=== PATIENT | male | born 1970 | race Caucasian/White ===

== ENCOUNTER 2016-08-07 18:14 | Emergency (ER) | payer OTHER ==
[2016-08-07 18:23] VITALS: BP 149/88; PULSE 60; TEMP 97.6; BMI 28.8
[2016-08-07 18:30] LABS: URINE APPEARANCE Slightly; URINE BILIRUBIN 1+ (NEGATIVE); URINE GLUCOSE (UA) Negative (NEGATIVE); URINE KETONE Negative (NEGATIVE); URINE LEUK ESTERASE Negative (NEGATIVE); URINE NITRITE Negative (NEGATIVE); URINE UROBILINOGEN 0.2 E.U/dl (0.2-1.0)
[2016-08-07 18:31] LABS: URINE BLOOD 3+ (NEGATIVE); URINE COLOR AMBER; URINE PROTEIN 2+ (NEGATIVE)
[2016-08-07 18:35] LABS: URINE BACTERIA FEW /hpf (NEGATIVE); URINE RBC 60-100 /hpf (0-3)
[2016-08-07 18:49] LABS: BASOPHIL 0.9 % (0-2.0); EOSINOPHIL 5.5 % (0-4.5); MCH 31.3 pg (25.7-33.7); MCHC 34.5 g/dl (32.0-35.9); MEAN CELL VOLUME 90.7 fl (80-96); MEAN PLT VOLUME 8.1 fl (7.5-11.1); NEUTROPHILS 68.3 % (42.8-82.8); PLATELET COUNT 258 K/MM3 (134-434); RDW 12.2 % (11.9-15.9); WHITE BLOOD COUNT 9.3 K/mm3 (4.0-10.8)
[2016-08-07 19:01] LABS: ALBUMIN 4.7 g/dl (3.5-5.0); ALK PHOS 60 U/L (32-92); ANION GAP 7 (8-16); BILIRUBIN,TOTAL 0.6 mg/dl (0.2-1.0); CALCIUM 9.2 mg/dl (8.4-10.2); CO2 28 mmol/L (22-28); COCKROFT - GAULT 119.97; GLUCOSE,RANDOM 136 mg/dl (74-106); SGOT/AST 30 U/L (10-42); SGPT/ALT 26 U/L (10-40); TOT PROT 7.1 g/dl (6.4-8.3)
[2016-08-07] MEDS ORDERED: KETOROLAC TROMETHAMINE 30 MG/1 ML VIAL IVPUSH ONE (19:05)
[2016-08-07] MEDS ORDERED: KETOROLAC TROMETHAMINE 30 MG/1 ML VIAL ONE (19:06)
--- NOTE | 2016-08-07 19:23 | PDOC ---
History of Present Illness - History of Present Illness Initial Comments: 08/07/16 19:31 The patient is a 46 year old male with a past medical history of kidney stones, presents to the emergency department with a complaint of abdominal pain since earlier today. Patient states this pain feels similar to his previous kidney stone pains. The pain is in the left lower quadrant and radiates down into his groin. Denies nausea or vomiting. Denies fever or chills. Adult HPI PAST MEDICAL HISTORY: kidney stones PAST SURGICAL HISTORY: no significant history FAMILY HISTORY: no pertinant history SOCIAL HISTORY: Pt lives with family and is employed. MEDICATIONS: reviewed ALLERGIES: As per nursing notes ROS General: No fevers or chills, no weakness, no weight loss HEENT: No change in vision. No sore throat,. No ear pain CardioVascular: No chest pain or shortness of breath Respiratory:No cough, or wheezing. Gastrointestinal: Yes: Abdominal pain no nausea, vomitting, diarrhea or constipation, No rectal bleeding Genitourinary: No dysuria, hematuria, or frequency Musculoskeletal: No joint or muscle pain or swelling Neurologic: No headache, vertigo, dizziness or loss of consciousness Psychiatric: no depression Skin: No rashes or easy bruising Endocrine: no increased thirst or abnormal weight change Allergic: no skin or latex allergy All other systems reviewed and normal Exam General: Well-nourished well-developed individual, no acute distress HEENT: Throat: Normal, tonsils normal, no erythema or exudate Neck: Supple, no meningeal signs, no lymphadenopathy Eyes::Pupils equal reactive and round, extraocular motion intact Chest: Nontender to palpation Cardiac: S1-S2 normal, regular rate and rhythm, no murmurs rubs or gallops Respiratory: Lungs clear to auscultation bilateral Abdomen: Soft, nondistended, normal bowel sounds, tender to palpation in the left lower quadrent. No CVA tenderness or flank tenderness Extremities: Warm, dry, no cyanosis, clubbing, or edema Skin: No rashes Neuro: Alert and oriented x3, nonfocal exam, grossly intact, normal gait <Gamal Caldwell - Last Filed: 08/07/16 19:33> - General History Source: Patient Exam Limitations: No Limitations - History of Present Illness Initial Comments: 08/07/16 19:47 A portion of this note was documented by scribe services under my direction. I have reviewed the details of the note, within reason, and agree with the documentation. The case summary and management plan written by me. 08/07/16 23:09 CT scan shows a 5 mm stone at the distal left ureter there are additional small stones bilaterally kidneys bilaterally no obstructive uropathy otherwise unremarkable. Assessment and plan: This is a 46-year-old male comes in complaining of left- sided flank pain. Patient had light in his urine and had a CAT scan to rule out renal colic. Patient did have a 5 mm distal ureter stone. Patient is comfortable at this time so the stone may have passed however in the event that it did not I am sending prescriptions to his pharmacy for pain medication and nausea medication and Flomax. Patient has had kidney stones before and has a urologist he can follow-up with. <Florentino Houston I - Last Filed: 08/07/16 23:15> - General Chief Complaint: Pain, Acute Stated Complaint: LEFT LLQ PAIN Time Seen by Provider: 08/07/16 19:13 Past History <Gamal Caldwell - Last Filed: 08/07/16 19:33> - Past Medical History Other medical history: KID STONES - Psycho/Social/Smoking Cessation Hx Anxiety: No Suicidal Ideation: No Smoking History: Never smoked Hx Alcohol Use: Yes Drug/Substance Use Hx: No Substance Use Type: Alcohol <Florentino Houston I - Last Filed: 08/07/16 23:15> - Past Medical History Allergies/Adverse Reactions: Allergies Allergy/AdvReac Type Severity Reaction Status Date / Time No Known Allergies Allergy Verified 08/07/16 18:15 Home Medications: Ambulatory Orders Apremilast [Otezla] 1 each PO BID 08/07/16 Ondansetron [Zofran Odt -] 4 mg SL TID #12 od.tablet 08/07/16 Oxycodone HCl/Acetaminophen [Percocet 5-325 mg Tablet] 1 - 2 tab PO Q4H #20 tablet MDD 8 08/07/16 Tamsulosin HCl [Flomax] 0.4 mg PO DAILY #30 cap.er.24h 08/07/16 *Physical Exam - Vital Signs Last Vital Signs Temp Pulse Resp BP Pulse Ox 97.6 F 60 16 149/88 100 08/07/16 18:15 08/07/16 18:15 08/07/16 18:15 08/07/16 18:15 08/07/16 18:15 <Gamal Caldwell - Last Filed: 08/07/16 19:33> - Vital Signs Last Vital Signs Temp Pulse Resp BP Pulse Ox 97.6 F 60 16 149/88 100 08/07/16 18:15 08/07/16 18:15 08/07/16 18:15 08/07/16 18:15 08/07/16 18:15 <Florentino Houston I - Last Filed: 08/07/16 23:15> ED Treatment Course - LABORATORY CBC & Chemistry Diagram: 08/07/16 18:20 08/07/16 18:20 - ADDITIONAL ORDERS Additional order review: Laboratory Results 08/07/16 08/07/16 18:20 18:20 Sodium 136 Potassium 3.9 Chloride 101 Carbon Dioxide 28 Anion Gap 7 L BUN 16 Creatinine 1.0 Creat Clearance w eGFR > 60 Random Glucose 136 H Calcium 9.2 Total Bilirubin 0.6 AST 30 ALT 26 Alkaline Phosphatase 60 Total Protein 7.1 Albumin 4.7 Urine Color [place] Urine Appearance Slightly Urine pH 5.0 Ur Specific [place] 1.025 Urine Protein 2+ H Urine Glucose (UA) Negative Urine Ketones Negative Urine Blood 3+ H Urine Nitrite Negative Urine Bilirubin 1+ H Urine Urobilinogen 0.2 e.u/dl Ur Leukocyte Esterase Negative Urine RBC 60-100 Urine WBC 2-4 Ur Epithelial Cells Few Amorphous Urates Few Urine Bacteria Few 08/07/16 18:20 RBC 4.80 MCV 90.7 MCHC 34.5 RDW 12.2 MPV 8.1 Neutrophils % 68.3 Lymphocytes % 19.0 Monocytes % 6.3 Eosinophils % 5.5 H Basophils % 0.9 - Medications Given in the ED: ED Medications Discontinued Medications Generic Name Dose Route Start Last Admin Trade Name Freq PRN Reason Stop Dose Admin Ketorolac Tromethamine 30 mg 08/07/16 19:05 08/07/16 19:08 Toradol Injection - IVPUSH 08/07/16 19:06 30 mg ONCE ONE Administration <Gamal Caldwell - Last Filed: 08/07/16 19:33> - LABORATORY CBC & Chemistry Diagram: 08/07/16 18:20 08/07/16 18:20 - ADDITIONAL ORDERS Additional order review: Laboratory Results 08/07/16 08/07/16 18:20 18:20 Sodium 136 Potassium 3.9 Chloride 101 Carbon Dioxide 28 Anion Gap 7 L BUN 16 Creatinine 1.0 Creat Clearance w eGFR > 60 Random Glucose 136 H Calcium 9.2 Total Bilirubin 0.6 AST 30 ALT 26 Alkaline Phosphatase 60 Total Protein 7.1 Albumin 4.7 Urine Color [place] Urine Appearance Slightly Urine pH 5.0 Ur Specific [place] 1.025 Urine Protein 2+ H Urine Glucose (UA) Negative Urine Ketones Negative Urine Blood 3+ H Urine Nitrite Negative Urine Bilirubin 1+ H Urine Urobilinogen 0.2 e.u/dl Ur Leukocyte Esterase Negative Urine RBC 60-100 Urine WBC 2-4 Ur Epithelial Cells Few Amorphous Urates Few Urine Bacteria Few 08/07/16 18:20 RBC 4.80 MCV 90.7 MCHC 34.5 RDW 12.2 MPV 8.1 Neutrophils % 68.3 Lymphocytes % 19.0 Monocytes % 6.3 Eosinophils % 5.5 H Basophils % 0.9 - RADIOLOGY Radiology Studies Ordered: Category Date Time Status ABDOMEN & PELVIS CT W/O CONTR [CT] Stat CT Scan 08/07/16 19:20 Ordered - Medications Given in the ED: ED Medications Discontinued Medications Generic Name Dose Route Start Last Admin Trade Name Betty PRN Reason Stop Dose Admin Ketorolac Tromethamine 30 mg 08/07/16 19:05 08/07/16 19:08 Toradol Injection - IVPUSH 08/07/16 19:06 30 mg ONCE ONE Administration <Florentino Houston I - Last Filed: 08/07/16 23:15> *DC/Admit/Observation/Transfer - Attestations Scribe Attestion: 08/07/16 19:31 Documentation prepared by Gamal Caldwell, acting as medical billing manager for Florentino Houston MD <Gamal Caldwell - Last Filed: 08/07/16 19:33> - Discharge Dispostion Admit: No <Florentino Houston I - Last Filed: 08/07/16 23:15> Diagnosis at time of Disposition: Renal colic on left side - Discharge Dispostion Disposition: HOME Condition at time of disposition: Stable - Patient Instructions Additional Instructions: For the pain you can take ibuprofen 3 tablets 3 times a day with food don't take on an empty stomach. If he needs something stronger I'm sending a prescription for Percocet to your pharmacy U can take one tablet as often as every 4-6 hours as needed. If you develop any nausea take Zofran 1 tablet 3 times a day as needed. To help the urine keep flowing take Flomax 1 tablet a day. Follow-up with your urologist.. Return to the emergency department immediately with ANY new, persistent or worsening symptoms. Continue any medications as previously prescribed by your physician. You should follow up with your primary doctor as soon as possible regarding today's emergency department visit. . Please make sure your doctor reviews the results of your emergency evaluation. Thank you for coming to the Emergency Department today for your care. It was a pleasure to see you today. Please note that your evaluation is INCOMPLETE until you follow-up with your doctor.
[2016-08-07] MEDS ORDERED: morphine CARPU-JECT 4 MG/1 ML DISP.SYRIN IVPUSH ONE (19:51)
[2016-08-07] MEDS ORDERED: morphine CARPU-JECT 10 MG/1 ML DISP.SYRIN ONE (20:00)
== END 2016-08-07 23:19 | disposition home or self-care (01) ==
LOC: FER 18:14
PROC: 3E033NZ Introduction of Analgesics, Hypnotics, Sedatives into Peripheral Vein, Percutaneous Approach (ICD-10-PCS; principal; 2016-08-07)
PROC: 3E0333Z Introduction of Anti-inflammatory into Peripheral Vein, Percutaneous Approach (ICD-10-PCS; 2016-08-07)
DX: N23 Unspecified renal colic (principal); Z87.442 Personal history of urinary calculi
CPT/HCPCS: 36415; 74176-TC; 80053; 81003; 81015; 85025; 99283-25